=== PATIENT | male | born 1970 | race Caucasian/White ===

== ENCOUNTER 2021-10-02 12:11 | Emergency (ER) | payer BC ==
--- NOTE | 2021-10-02 11:59 | CT ---
EXAMINATION TYPE: CT abdomen pelvis wo con DATE OF EXAM: 10/02/2021 COMPARISON: None HISTORY: 51 year-old male Left flank, abdominal and back pain. CT DLP: 1199 mGycm. Automated exposure control for dose reduction was used. TECHNIQUE: Contiguous axial scanning of the abdomen and pelvis without IV contrast. Coronal and sagit carlito reconstructions performed. FINDINGS: Heart normal size without pericardial effusion. There is a 6 mm subpleural pulmonary nodule at the periphery of the right base that warrants follow-u p. [id number] sized hiatal hernia. Noncontrast images of the liver show at least mild to moderate hepatic steatosis. Noncontrast images of the gallbladder, adrenal glands, right kidney, and pancreas show no gross abnor mal body. Spleen mildly enlarged at 14.4 cm. There is nonobstructing 2 mm calculus midpole left kidney. There is mild to moderate left-sided hydro nephrosis. The degree of perinephric edema is out of proportion to the amount of hydronephrosis. Mild hydroureter also present on the left and a 6 mm stone at the distal left ureter proximal to the UVJ. No dilated small bowel, free fluid, or free air. No mesenteric or retroperitoneal lymphadenopathy. Normal appendix. Mild stool burden particularly on the right side of the abdomen. No pericolic inflam matory change. Bladder is collapsed. Some left paramedian central prostatic calcification. No abnormal fluid collect ion in the pelvis or pelvic lymphadenopathy. Bones: Mild degenerative spurring at both hips. Degenerative spurring at the bilateral SI joints. Rig ht greater than left. Facet arthropathy lower lumbar spine. IMPRESSION: 1. A 6 m calculus distal left ureter with [id number] obstructive uropathy. 2. The degree of perinephric edema appears out of proportion to the amount of hydronephrosis. Findin gs could represent a small amount of urine extravasation or superimposed infection. Clinically correl ate. 3. A 6 mm subpleural pulmonary nodule at the right base. Recommend three-month follow-up CT chest to reassess and also to survey the remainder of the lungs. The patient should not be lost to follow-up. 4. Mild splenomegaly of 14.4 cm. Small to moderate sized hiatal hernia.
[2021-10-02] MEDS ORDERED: MORPHINE SULFATE 4 MG/ML SYRINGE IV STA (12:38)
[2021-10-02] MEDS ORDERED: ONDANSETRON 4 MG/2 ML VIAL IVP STA (12:38)
[2021-10-02] MEDS ORDERED: SODIUM CHLORIDE 0.9% 1,000 ML IV STA (12:38)
[2021-10-02] MEDS ORDERED: KETOROLAC 15 MG/ML 1 ML VIAL IVP STA (12:38)
--- NOTE | 2021-10-02 13:00 | ED ---
General Adult HPI - General Chief complaint: Abdominal Pain Stated complaint: abnormal CT Time Seen by Provider: 10/02/21 12:23 Source: patient, RN notes reviewed, old records reviewed Mode of arrival: ambulatory Limitations: no limitations - History of Present Illness Initial comments: I evaluated the patient was placed in a room. Patient is a 51-year-old male who is relatively healthy with no past medical history presents here in the department after being sent by his PCP following CT his abdomen and pelvis. He has been having left-sided flank pain noted CT over concern for possible kidney stone. Patient's CT imaging revealed a left-sided 6 mm calculus in the distal left ureter with mild to moderate obstructive uropathy. There is also a small amount of perinephric edema and may be secondary to hydronephrosis versus infection. Radiologist also expressed concern for possible urine extravasation, which is relatively unlikely as the patient has mild to moderate obstruction. Patient also has a pulmonary nodule of the right lung base with recommended follow-up imaging. Is also mild splenomegaly a small hiatal hernia. Patient's been complaining of sharp left-sided flank pain with some radiation towards his back. States he is still urinating, denies any hematuria or dysuria. Endorses intermittent nausea but denies any episodes of emesis. Denies any diarrhea. Denies any fevers, chills, cough, sick contacts. His no chest pain or shortness of breath. His no other acute in onset this time. Presents as he was sent here for further evaluation. - Related Data Previous Rx's Medication Instructions Recorded HYDROcodone/APAP 5-325MG [[place] 1 tab PO Q6HR PRN 3 Days #12 tab 10/02/21 5-325] Ondansetron Odt [Zofran Odt] 4 mg PO Q8HR PRN 3 Days #9 tab 10/02/21 Tamsulosin [Flomax] 0.4 mg PO DAILY 14 Days #14 cap 10/02/21 Allergies Allergy/AdvReac Type Severity Reaction Status Date / Time No Known Allergies Allergy Verified 10/02/21 13:49 Review of Systems ROS Statement: Those systems with pertinent positive or pertinent negative responses have been documented in the HPI. Review of Systems: CONST: Denies fever EYES: Denies blurry vision ENT: Denies nasal congestion C/V: Denies Chest pain RESP: Denies shortness of breath GI: Endorses left flank pain : Denies dysuria SKIN: Denies rash. MSK: Denies joint pain. NEURO: Denies headache ROS Other: All systems not noted in ROS Statement are negative. Past Medical History Past Medical History: No Reported History History of Any Multi-Drug Resistant Organisms: None Reported Past Surgical History: No Surgical Hx Reported Past Psychological History: No Psychological Hx Reported Smoking Status: Never smoker Past Alcohol Use History: None Reported Past Drug Use History: None Reported General Exam - General Exam Comments Initial Comments: General: Appears in no acute distress. HEAD: Normal with no signs of head trauma. EYES: PERRLA, EOMI, conjunctiva normal, no discharge. ENT: Hearing grossly intact, normal oropharynx. RESPIRATORY: Clear breath sounds bilaterally. No wheezes, rales, or rhonchi. C/V: Regular rate and rhythm. S1 and S2 auscultated, no edema, peripheral pulses 2+ and intact throughout ABD: Abdomen is soft, nondistended. Patient is tender of the left lower quadrant with radiation to the left flank and has left CVA mild tenderness on percussion. No guarding. No peritoneal signs. No rebound tenderness. EXT: Normal range of motion, no obvious deformity SKIN: No rashes or lesions observed on exposed skin. NEURO: Alert and oriented 4. Limitations: no limitations Course Vital Signs 10/02/21 10/02/21 12:19 14:42 Temperature 97.9 F 97.8 F Pulse Rate 100 76 Respiratory 18 16 Rate Blood Pressure 156/100 168/109 O2 Sat by Pulse 97 99 Oximetry Medical Decision Making - Medical Decision Making Based on the patient's presentation and physical exam, he was sent here for further evaluation for left-sided abdominal pain which appears to be secondary to left-sided nephrolithiasis. This concerned for possible infection and CT and therefore we will obtain basic laboratory studies as well as urine study. Is tolerating by mouth intake, however we'll provide him with a 1 L fluid bolus, analgesia, as well as antiemetics. We will obtain an ultrasound to further evaluate the patient's left sided hydronephrosis. Patient was in agreement this plan. Patient's laboratory studies are remarkable for mild leukocytosis of 12.5. Patient is mild AK eye, creatinine slightly elevated 1.33 which is likely secondary to his kidney stone. Urinalysis is positive for RBCs and blood likely secondary to his kidney stone but no signs of acute infection. Nitrates and leukocyte esterase are both negative. There are no WBCs. Patient's ultrasound revealed no obvious abnormality, however this was a slightly difficult study due to body habitus. On reevaluation, patient's pain is improved. He is tolerating oral intake. He like to go home and I think this is reasonable. I'll provide him with a dose of Flomax as well as prescription with follow-up with urology outpatient. I explained to him and discussed the size of his kidney stone and explained that it should pass on its own but I would still like him to follow up with urology. He is ibuprofen at home as well as [place] which I will provide him with. He will be given 12 tablets and he pleaded an opiate form. Patient also be given a prescription for ODT Zofran as well as Flomax. I discussed the results of his other CT findings, including a pulmonary nodule and recommended that he obtain repeat imaging in 3 months. I explained that the findings on the CT are likely secondary to some mild inflammation around his left kidney secondary to kidney stone as he clinically has no signs of kidney or ureteral rupture, and no signs on laboratory studies are clinically for an acute kidney infection. I do not believe that he requires antibiotics at this time. He was in agreement this plan. I will provide the patient with a prescription for ODT Zofran, Flomax, [place] 5. I instructed the patient to follow up with their PCP in the next 3 days. I provided contact information for follow up with Dr. Goodman of urology. I explained that the patient should return to the emergency department if they experience any worsening symptoms. Strict return precautions were discussed with the patient. The patient expressed understanding of these instructions. I answered all questions that the patient had. The patient was discharged home in good condition with their prescriptions and follow up information. - Lab Data Result diagrams: 10/02/21 12:52 10/02/21 12:52 Lab Results 10/02/21 10/02/21 10/02/21 Range/Units 12:52 12:52 12:52 WBC 12.5 H (3.8-10.6) k/uL RBC 5.15 (4.30-5.90) m/uL Hgb 16.2 (13.0-17.5) gm/dL Hct 48.0 (39.0-53.0) % MCV 93.3 (80.0-100.0) fL MCH 31.6 (25.0-35.0) pg MCHC 33.8 (31.0-37.0) g/dL RDW 13.5 (11.5-15.5) % Plt Count 329 (150-450) k/uL MPV 7.0 Neutrophils % 85 % Lymphocytes % 9 % Monocytes % 4 % Eosinophils % 0 % Basophils % 1 % Neutrophils # 10.7 H (1.3-7.7) k/uL Lymphocytes # 1.1 (1.0-4.8) k/uL Monocytes # 0.5 (0-1.0) k/uL Eosinophils # 0.0 (0-0.7) k/uL Basophils # 0.1 (0-0.2) k/uL Sodium 138 (137-145) mmol/L Potassium 4.2 (3.5-5.1) mmol/L Chloride 109 H (98-107) mmol/L Carbon Dioxide 21 L (22-30) mmol/L Anion Gap 8 mmol/L BUN 15 (9-20) mg/dL Creatinine 1.33 H (0.66-1.25) mg/dL Est GFR (CKD-EPI)AfAm 71 (>60 ml/min/1.73 sqM) Est GFR (CKD-EPI)NonAf 61 (>60 ml/min/1.73 sqM) Glucose 158 H (74-99) mg/dL Calcium 8.9 (8.4-10.2) mg/dL Total Bilirubin 0.8 (0.2-1.3) mg/dL AST 33 (17-59) U/L ALT 33 (4-49) U/L Alkaline Phosphatase 73 (38-126) U/L Total Protein 6.6 (6.3-8.2) g/dL Albumin 3.8 (3.5-5.0) g/dL Urine Color Yellow Urine Appearance Turbid (Clear) Urine pH 5.5 (5.0-8.0) Ur Specific [place] 1.031 (1.001-1.035) Urine Protein 1+ H (Negative) Urine Glucose (UA) Negative (Negative) Urine Ketones Negative (Negative) Urine Blood Large H (Negative) Urine Nitrite Negative (Negative) Urine Bilirubin Negative (Negative) Urine Urobilinogen <2.0 (<2.0) mg/dL Ur Leukocyte Esterase Negative (Negative) Urine RBC 18 H (0-5) /hpf Urine WBC <1 (0-5) /hpf Amorphous Sediment Few H (None) /hpf Urine Mucus Rare H (None) /hpf Disposition Clinical Impression: Nephrolithiasis, Hydronephrosis, Pulmonary nodule Disposition: HOME SELF-CARE Condition: Good Instructions (If sedation given, give patient instructions): Kidney Stones (ED) Additional Instructions: Follow-up with urology in the next 3-4 days. Obtain repeat imaging to further evaluate right-sided pulmonary nodule in 3 months. Prescriptions: Tamsulosin [Flomax] 0.4 mg PO DAILY 14 Days #14 cap HYDROcodone/APAP 5-325MG [[place] 5-325] 1 tab PO Q6HR PRN 3 Days #12 tab PRN Reason: Pain Ondansetron Odt [Zofran Odt] 4 mg PO Q8HR PRN 3 Days #9 tab PRN Reason: Nausea Is patient prescribed a controlled substance at d/c from ED?: Yes When asked, does pt state using other controlled substances?: No If prescribed controlled substance>3 days was MAPS reviewed?: Prescribed <3 Days Referrals: Reuben Shea MD [Primary Care Provider] - 1-2 days Vamshi Goodman MD [STAFF PHYSICIAN] - 1-2 days
[2021-10-02 13:09] LABS: Basophils # (A) 0.1 k/uL (0-0.2); Basophils % (A) 1 %; Eosinophils % (A) 0 %; HGB 16.2 gm/dL (13.0-17.5); Lymphocytes # (A) 1.1 k/uL (1.0-4.8); Lymphocytes % (A) 9 %; MCH 31.6 pg (25.0-35.0); MCHC 33.8 g/dL (31.0-37.0); MCV 93.3 fL (80.0-100.0); Monocytes # (A) 0.5 k/uL (0-1.0); Monocytes % (A) 4 %; Neutrophils # (A) 10.7 k/uL (1.3-7.7); Neutrophils % (A) 85 %; Platelet Count 329 k/uL (150-450); RBC 5.15 m/uL (4.30-5.90); RDW 13.5 % (11.5-15.5); WBC 12.5 k/uL (3.8-10.6)
[2021-10-02 13:20] LABS: Amorphous Sediment,Urine Few /hpf; Appearance,Urine Turbid (Clear); Bilirubin,Urine Negative (Negative); Blood,Urine Large (Negative); Color,Urine Yellow; Glucose,Urine (UA) Negative (Negative); Ketones,Urine Negative (Negative); Leukocyte Esterase,Urine Negative (Negative); Mucus,Urine Rare /hpf; Nitrite,Urine Negative (Negative); PH, Urine 5.5 (5.0-8.0); Protein,Urine 1+ (Negative); RBC,Urine 18 /hpf (0-5); Specific Gravity,Urine 1.031 (1.001-1.035); Urobilinogen,Urine <2.0 mg/dL (<2.0); WBC,Urine <1 /hpf (0-5)
[2021-10-02 13:39] LABS: Albumin 3.8 g/dL (3.5-5.0); Calcium 8.9 mg/dL (8.4-10.2); Potassium 4.2 mmol/L (3.5-5.1); Total Bilirubin 0.8 mg/dL (0.2-1.3); Total Protein 6.6 g/dL (6.3-8.2)
--- NOTE | 2021-10-02 13:50 | US ---
EXAMINATION TYPE: US kidneys/renal and bladder DATE OF EXAM: 10/02/2021 COMPARISON: CT CLINICAL HISTORY: evaluate for hydronephrosis, left kidney stone. EXAM MEASUREMENTS: Right Kidney: 11.5 x 5.5 x 5.4 cm Left Kidney: 10.8 x 6.8 x 5.4 cm Patient of large body habitus. Right Kidney: wnl as seen Left Kidney: unable to appreciate hydro or stones with ultrasound, this may be due to body habitus or overlying bowel gas Bladder: not fully distended IMPRESSION: 1. Retroperitoneal ultrasound kidneys as visualized appears unremarkable.
[2021-10-02] MEDS ORDERED: TAMSULOSIN 0.4 MG CAP.ER.24H PO STA (14:23)
[2021-10-02 14:47] VITALS: BP 168/109; PULSE 76; RESP 16; TEMP 97.8
== END 2021-10-02 14:39 | disposition home or self-care (01) ==
LOC: EC 12:11 → EDSTATUS 18:30
DX: N13.2 Hydronephrosis with renal and ureteral calculous obstruction (principal); R91.1 Solitary pulmonary nodule
CPT/HCPCS: 36415; 74176; 76770; 80053; 81001; 85025; 96361; 96374; 96375; 99284

== ENCOUNTER 2021-10-04 11:00 | Emergency (ER) | payer BC ==
[2021-10-04 11:25] VITALS: TEMP 98.3
[2021-10-04] MEDS ORDERED: SODIUM CHLORIDE 0.9% 1,000 ML IV STA (11:30)
[2021-10-04] MEDS ORDERED: KETOROLAC 30 MG/ML 1 ML VIAL IVP STA (11:32)
--- NOTE | 2021-10-04 11:51 | ED ---
General Adult HPI - General Chief complaint: Abdominal Pain Stated complaint: F/U Visit, Back and Abd.Pain Time Seen by Provider: 10/04/21 11:30 Source: patient Mode of arrival: ambulatory Limitations: no limitations - History of Present Illness Initial comments: Dictation was produced using [employer] dictation software. please excuse any grammatical, word or spelling errors. Chief Complaint: 51-year-old male back to the emergency department for left- sided flank pain History of Present Illness: 51-year-old male he was seen in the emergency department 2 days ago. Diagnosed with a kidney stone. Patient had a computed tomography scan that showed a 6 mm calculus in the distal left ureter. Patient states she's been at home Gen. cover. He states his symptoms are not improving at all. States that he still having symptoms. Has not had any follow-up yet. This been taking his medications as prescribed. Denies any constitutional symptoms. No nausea vomiting. States his symptoms are all on the left side. States that it radiates from his left flank to his left abdomen down to his suprapubic area. The ROS documented in this emergency department record has been reviewed and confirmed by me. Those systems with pertinent positive or negative responses have been documented in the HPI. All other systems are other negative and/or noncontributory. PHYSICAL EXAM: General Impression: Alert and oriented x3, not in acute distress HEENT: Normocephalic atraumatic, extra-ocular movements intact, pupils equal and reactive to light bilaterally, mucous membranes moist. Cardiovascular: Heart regular rate and rhythm Chest: Able to complete full sentences, no retractions, no tachypnea Abdomen: abdomen soft, non-tender, non-distended, no organomegaly Musculoskeletal: Pulses present and equal in all extremities, no peripheral edema, mild CVA tenderness to the left Motor: no focal deficits noted Neurological: CN II-XII grossly intact, no focal motor or sensory deficits noted Skin: Intact with no visualized rashes Psych: Normal affect and mood ED course: 51-year-old male with recently diagnosed kidney stone presents with persistent left-sided pain flank and abdominal. Vital signs upon arrival are within acceptable limits. Patient's well-appearing at the bedside. Laboratory evaluation obtained. CBC and metabolic panels within acceptable limits. Seems unchanged compared to labs from 2 days ago. Urinalysis is the same. Abdominal ultrasound shows perhaps a stone in the distal left ureter or another, getting processes noted. Abdominal x-rays unremarkable. Patient reevaluated bedside at 3:00 and found to be stable medical condition. Patient told that he needs to follow up with urology on outpatient basis for further management of kidney stone. Patient told to take more of his analgesic medications as needed. He is also told to follow-up with his primary care doctor. - Related Data Previous Rx's Medication Instructions Recorded HYDROcodone/APAP 5-325MG [[place] 1 tab PO Q6HR PRN 3 Days #12 tab 10/02/21 5-325] Ondansetron Odt [Zofran Odt] 4 mg PO Q8HR PRN 3 Days #9 tab 10/02/21 Tamsulosin [Flomax] 0.4 mg PO DAILY 14 Days #14 cap 10/02/21 HYDROcodone/APAP 5-325MG [[place] 1 tab PO Q6HR PRN 3 Days #12 tab 10/04/21 5-325] Allergies Allergy/AdvReac Type Severity Reaction Status Date / Time No Known Allergies Allergy Verified 10/04/21 11:53 Review of Systems ROS Statement: Those systems with pertinent positive or pertinent negative responses have been documented in the HPI. ROS Other: All systems not noted in ROS Statement are negative. Past Medical History Past Medical History: No Reported History History of Any Multi-Drug Resistant Organisms: None Reported Past Surgical History: No Surgical Hx Reported Past Psychological History: No Psychological Hx Reported Smoking Status: Never smoker Past Alcohol Use History: None Reported Past Drug Use History: None Reported General Exam Limitations: no limitations Course Vital Signs 10/04/21 10/04/21 11:22 14:00 Temperature 98.3 F Pulse Rate 79 80 Respiratory 16 18 Rate Blood Pressure 154/91 131/86 O2 Sat by Pulse 97 100 Oximetry Medical Decision Making - Lab Data Result diagrams: 10/04/21 11:49 10/04/21 11:53 Lab Results 10/04/21 10/04/21 10/04/21 Range/Units 11:49 11:53 14:32 WBC 12.8 H (3.8-10.6) k/uL RBC 4.92 (4.30-5.90) m/uL Hgb 15.7 (13.0-17.5) gm/dL Hct 45.7 (39.0-53.0) % MCV 92.9 (80.0-100.0) fL MCH 32.0 (25.0-35.0) pg MCHC 34.4 (31.0-37.0) g/dL RDW 13.3 (11.5-15.5) % Plt Count 299 (150-450) k/uL MPV 6.9 Neutrophils % 83 % Lymphocytes % 11 % Monocytes % 4 % Eosinophils % 0 % Basophils % 0 % Neutrophils # 10.6 H (1.3-7.7) k/uL Lymphocytes # 1.4 (1.0-4.8) k/uL Monocytes # 0.6 (0-1.0) k/uL Eosinophils # 0.0 (0-0.7) k/uL Basophils # 0.0 (0-0.2) k/uL Sodium 138 (137-145) mmol/L Potassium 3.7 (3.5-5.1) mmol/L Chloride 106 (98-107) mmol/L Carbon Dioxide 25 (22-30) mmol/L Anion Gap 7 mmol/L BUN 12 (9-20) mg/dL Creatinine 1.26 H (0.66-1.25) mg/dL Est GFR (CKD-EPI)AfAm 75 (>60 ml/min/1.73 sqM) Est GFR (CKD-EPI)NonAf 65 (>60 ml/min/1.73 sqM) Glucose 126 H (74-99) mg/dL Calcium 9.0 (8.4-10.2) mg/dL Total Bilirubin 1.3 (0.2-1.3) mg/dL AST 33 (17-59) U/L ALT 29 (4-49) U/L Alkaline Phosphatase 82 (38-126) U/L Total Protein 6.8 (6.3-8.2) g/dL Albumin 3.9 (3.5-5.0) g/dL Lipase 119 (23-300) U/L Urine Color Yellow Urine Appearance Clear (Clear) Urine pH 6.0 (5.0-8.0) Ur Specific [place] 1.024 (1.001-1.035) Urine Protein Negative (Negative) Urine Glucose (UA) Negative (Negative) Urine Ketones 1+ H (Negative) Urine Blood Trace H (Negative) Urine Nitrite Negative (Negative) Urine Bilirubin Negative (Negative) Urine Urobilinogen <2.0 (<2.0) mg/dL Ur Leukocyte Esterase Negative (Negative) Urine RBC 6 H (0-5) /hpf Urine WBC 2 (0-5) /hpf Amorphous Sediment Rare H (None) /hpf Urine Mucus Rare H (None) /hpf Disposition Clinical Impression: Nephrolithiasis Disposition: HOME SELF-CARE Condition: Fair Instructions (If sedation given, give patient instructions): Kidney Stones (ED) Prescriptions: HYDROcodone/APAP 5-325MG [[place] 5-325] 1 tab PO Q6HR PRN 3 Days #12 tab PRN Reason: Severe Pain Is patient prescribed a controlled substance at d/c from ED?: No Referrals: Reuben Shea MD [Primary Care Provider] - 1-2 days Denis uStherland MD [STAFF PHYSICIAN] - 1-2 days
[2021-10-04 11:57] LABS: Basophils % (A) 0 %; Eosinophils % (A) 0 %; HCT 45.7 % (39.0-53.0); HGB 15.7 gm/dL (13.0-17.5); Lymphocytes # (A) 1.4 k/uL (1.0-4.8); Lymphocytes % (A) 11 %; MCHC 34.4 g/dL (31.0-37.0); MCV 92.9 fL (80.0-100.0); Mean Platelet Volume 6.9; Monocytes # (A) 0.6 k/uL (0-1.0); Monocytes % (A) 4 %; Neutrophils # (A) 10.6 k/uL (1.3-7.7); Neutrophils % (A) 83 %; Platelet Count 299 k/uL (150-450); RBC 4.92 m/uL (4.30-5.90); RDW 13.3 % (11.5-15.5); WBC 12.8 k/uL (3.8-10.6)
[2021-10-04 12:06] LABS: Albumin 3.9 g/dL (3.5-5.0); Potassium 3.7 mmol/L (3.5-5.1); Total Bilirubin 1.3 mg/dL (0.2-1.3); Total Protein 6.8 g/dL (6.3-8.2)
--- NOTE | 2021-10-04 12:20 | XR ---
EXAMINATION TYPE: XR abdomen 1V DATE OF EXAM: 10/04/2021 12:05 PM CLINICAL HISTORY: Abdominal pain TECHNIQUE: Single supine KUB image of the abdomen is obtained. COMPARISON: CT abdomen pelvis 09/24/2021. FINDINGS: Scattered gas is seen in non-distended small bowel loops. Gas and fecal material is seen in non-distended colon. There is no pneumoperitoneum, or abnormal calcification appreciated. The lung bases are clear and the osseous structures are intact. IMPRESSION: Overall nonobstructive bowel gas pattern.
--- NOTE | 2021-10-04 13:55 | US ---
EXAMINATION TYPE: US kidneys/renal and bladder DATE OF EXAM: 10/04/2021 COMPARISON: CT, US 2 days ago CLINICAL HISTORY: kidney stone. EC patient with left flank and left abdominal pain; let renal/uretera l stone per CT EXAM MEASUREMENTS: Right Kidney: 12.5 x 6.3 x 5.2 cm Left Kidney: 12.2 x 6.1 x 7.2 cm Post Void Residual Volume: not assessed on EC patient Right Kidney: No hydronephrosis or masses seen Left Kidney: No hydronephrosis or masses seen Bladder: mildly distended; possible hyperechoic and shadowing focus seen left distal ureter but unabl e to verify in longitudinal view. Bilateral Jets seen: no, only left ureteral jet was seen within 3 minute observation IMPRESSION: 1. No hydronephrosis of either kidney. 2. Hyperechoic and shadowing focus seen in the left distal ureter but not verified in longitudinal v iew. Left ureteral jet noted. Recommend renal stone protocol CT for further assessment if clinically warranted.
[2021-10-04 14:04] VITALS: BP 131/86; PULSE 80; RESP 18
[2021-10-04 14:52] LABS: Amorphous Sediment,Urine Rare /hpf; Appearance,Urine Clear (Clear); Bilirubin,Urine Negative (Negative); Blood,Urine Trace (Negative); Color,Urine Yellow; Glucose,Urine (UA) Negative (Negative); Ketones,Urine 1+ (Negative); Leukocyte Esterase,Urine Negative (Negative); Mucus,Urine Rare /hpf; Nitrite,Urine Negative (Negative); Protein,Urine Negative (Negative); RBC,Urine 6 /hpf (0-5); Specific Gravity,Urine 1.024 (1.001-1.035); Urobilinogen,Urine <2.0 mg/dL (<2.0); WBC,Urine 2 /hpf (0-5)
== END 2021-10-04 15:10 | disposition home or self-care (01) ==
LOC: EC 11:00
DX: N20.0 Calculus of kidney (principal)
CPT/HCPCS: 99284; 96374; 36415; 80053; 83690; 85025; 81001; 74018; 76770; J1885

== ENCOUNTER → 2021-10-09 | Day surgery (SDC) | payer BC ==
[2021-10-08 14:57] VITALS: BMI 31.1
[~2021-10-09] MED LIST: DEXAMETHASONE SOD PHOSPHATE 4 MG/ML 1 ML VIAL IV ONE; GLYCOPYRROLATE 0.2 MG/ML 2 ML VIAL ONE; HYDROmorphone 1 MG/ML 1 ML SYRINGE IVP PRN; KETOROLAC 15 MG/ML 1 ML VIAL IVP ONE; LACTATED RINGERS 1,000 ML IV ONE; LACTATED RINGERS 1,000 ML IV SCH; LIDOCAINE 1% INJ 10MG/ML (20 ML MDV) ONE; MIDAZOLAM 2 MG/2 ML VIAL IV PRN; MIDAZOLAM 2 MG/2 ML VIAL ONE; NEOSTIGMINE 1 MG/ML 10 ML VIAL ONE; ONDANSETRON 4 MG/2 ML VIAL IVP ONE; PROPOFOL 10 MG/ML 20 ML VIAL IV ONE; ROCURONIUM 10 MG/ML (5 ML VIAL) IV ONE; SCOPOLAMINE 1.5MG/72HR PATCH TRANSDERM ONE; SUCCINYLCHOLINE CHLORIDE 100 MG/5 ML SYR IV ONE; fentaNYL (PF) 50 MCG/ML 2 ML AMP ONE
--- NOTE | 2021-10-09 08:20 | P.HPIHPCON ---
History of Present Illness H&P Date: 10/09/21 51 yo male with hx of 6 mm left sided distal ureteral stone, he has failed medical expulsive therapy. Option of left sided ureteroscopy with holmium laser was discussed with him. Discussed the risk of surgery which includes but not limited to bleeding, infection, injury to the ureter. Discussed also risk from anesthesia. He understood all risks and agreed to proceed with left sided ureteroscopy with holmium laser, stone basket and stent placement Consent for Procedure: I have explained the operation/procedure to the patient, including the risks, benefits, side effects, alternative therapies (including not receiving the proposed treatment or service), the likelihood of the patient achieving his/her goals, and potential recuperation problems for the procedure/sedation/analgesia, as well as any blood products, if indicated. I also explained to the patient the risks, benefits and side effects of the alternatives, as well as the risks related to not receiving the proposed procedure, care, treatment, or services. Past Medical History Past Medical History: No Reported History Additional Past Medical History / Comment(s): kidney stones History of Any Multi-Drug Resistant Organisms: None Reported Past Surgical History: No Surgical Hx Reported Additional Past Surgical History / Comment(s): wisdom teeth removed Past Anesthesia/Blood Transfusion Reactions: No Reported Reaction Smoking Status: Never smoker - Past Family History Mother Family Medical History: No Reported History Medications and Allergies Home Medications Medication Instructions Recorded Confirmed Type Ondansetron Odt [Zofran Odt] 4 mg PO Q8HR PRN 3 Days #9 tab 10/02/21 10/08/21 Rx Tamsulosin [Flomax] 0.4 mg PO DAILY 14 Days #14 cap 10/02/21 10/08/21 Rx HYDROcodone/APAP 5-325MG [[place] 1 tab PO Q6HR PRN 3 Days #12 tab 10/04/21 10/08/21 Rx 5-325] Allergies Allergy/AdvReac Type Severity Reaction Status Date / Time No Known Allergies Allergy Verified 10/08/21 14:46 Surgical - Exam - General no distress, no pain - Eyes normal ocular movement, no pale - ENT normal nares, normal mucosa - Respiratory normal expansion, normal respiratory effort - Abdomen Abdomen: soft, non tender Assessment and Plan Assessment: OR for left sided ureteroscopy with holmium laser, stone basket and stent placement
--- NOTE | 2021-10-09 11:51 | XR ---
EXAMINATION TYPE: XR KUB DATE OF EXAM: 10/09/2021 Comparison: None Clinical History: 51-year-old male N20.1 uretal stone left, preoperative assessment Findings: Mild to moderate stool in the right side of the abdomen. Mild elsewhere in the abdomen. 6 mm oval calcification left paramedian pelvis may correspond to the distal ureteral calculus seen on recent CT. No additional suspicious calcifications are seen. Mild degenerative change both hips. Impression: 6 mm oval calcification left paramedian pelvis may correspond to the distal ureteral calculus seen on recent CT.
--- NOTE | 2021-10-09 13:08 | P.OP ---
Date of Procedure: 10/09/21 Preoperative Diagnosis: Left ureteral stone Postoperative Diagnosis: Same Procedure(s) Performed: Cystoscopy, left ureteroscopy, holmium laser lithotripsy, stone basketing and stent insertion Implants: 6-[place] by 26 cm stent in the left ureter or left on a string Anesthesia: AGNIESZKA Surgeon: Denis Sutherland Estimated Blood Loss (ml): 1 Pathology: other (left ureteral stone) Condition: stable Disposition: PACU Indications for Procedure: 51 yo male with hx of 6 mm left sided distal ureteral stone, he has failed medical expulsive therapy. Option of left sided ureteroscopy with holmium laser was discussed with him. Discussed the risk of surgery which includes but not limited to bleeding, infection, injury to the ureter. Discussed also risk from anesthesia. He understood all risks and agreed to proceed with left sided ureteroscopy with holmium laser, stone basket and stent placement Operative Findings: left Sided distal ureteral stone Description of Procedure: Patient was brought to the operating room, general anesthesia was induced. He was prepped and draped in sterile fashion a placement dorsal lithotomy position. A cystoscopy fitted with 21-[place] sheath was inserted per urethra, cystoscopy was performed which showed no abnormality within the bladder. Next a sensor wire was advanced through the cystoscope and up the left ureteral orifice, the wire position was confirmed on fluoroscopy in the renal pelvis. Next a semirigid ureteroscope was inserted per meatus and advanced up the left ureteral orifice. Stone was encountered in the distal ureter. Using the holmium laser the stones were fragmented into small fragments, sizable fragments were removed using the stone basket. At this time the ureteroscope was advanced past the stone and into the proximal ureter which showed no additional stones. Pullback ureteroscopy was performed showed no sizable fragments or injury to the ureter. Next a ureteral stent was passed over the wire, the proximal curl was visualized on fluoroscopy and the distal curl was visualized using the cystoscope. The bladder was emptied and the case. Patient tolerated the procedure well and significant recovery in stable condition
--- NOTE | 2021-10-09 13:21 | FL ---
EXAMINATION TYPE: FL guidance operating room DATE OF EXAM: 10/09/2021 FLUOROSCOPY Fluoroscopy time of 21 seconds was used during cystoscopy and left-sided lithotripsy. 7 image/s docu ment/s the procedure.
[2021-10-09 13:32] VITALS: TEMP 97.5
[2021-10-09 14:25] VITALS: BP 155/85; PULSE 69; RESP 17
== END ==
LOC: OR 10:32
PROVIDERS: ATTEND Urology
DX: N20.1 Calculus of ureter (principal); Z87.442 Personal history of urinary calculi; Z98.890 Other specified postprocedural states; Z79.899 Other long term (current) drug therapy
CPT/HCPCS: 82365; 74018; 52356; C2625; C1769; J2250; J1100; J2710; J0690; J2405; J2001; J3010; J1885; J0330; J2704

== ENCOUNTER → 2021-11-10 | Outpatient (CLI) | payer BC ==
--- NOTE | 2021-11-10 10:27 | XR ---
EXAMINATION TYPE: XR KUB DATE OF EXAM: 11/10/2021 COMPARISON: X-ray dated 10/09/2021 INDICATION: Follow-up TECHNIQUE: Standard supine x-ray of the abdomen. FINDINGS: The previously described suspected left distal ureteric stone is not appreciated by this x-ray. No de finite radiodense renal, ureteric or urinary bladder calculi. Further CT assessment can be considered if clinically required. Mild degenerative changes of the hip joints. Osteophytosis of the right sacr oiliac joint. IMPRESSION: As above.
== END | disposition home or self-care (01) ==
LOC: RADXRMAIN 09:08
PROVIDERS: ATTEND Urology
DX: N20.1 Calculus of ureter (principal)
CPT/HCPCS: 74018